=== PATIENT | male | born 1960 | race Caucasian/White ===

== ENCOUNTER 2018-05-21 08:33 | Outpatient (CLI) | payer OTHER, SELFPAY ==
[2018-05-21 12:13] LABS: ALT 34 U/L (12-78); AST 24 U/L (15-37); Albumin 3.8 g/dL (3.4-5.0); Alkaline Phosphatase 94 U/L (46-116); Anion Gap 9.8 mmol/L (3-11); BUN 33 mg/dL (7-18); Bilirubin, Total 0.7 mg/dL (0.2-1.0); CO2 26.2 mmol/L (21.0-32.0); CREATININE 1.02 mg/dL (0.70-1.30); Calcium 9.1 mg/dL (8.5-10.1); Chloride 104 mmol/L (98-107); Glucose 102 mg/dL (70-100); Potassium 4.5 mmol/L (3.5-5.1); Sodium 140 mmol/L (136-145); Total Protein 7.1 g/dL (6.4-8.2)
== END 2018-05-21 08:53 ==
PROVIDERS: PCP Family Medicine; Visit Provider Family Medicine
DX: I10 Essential (primary) hypertension (principal)
CPT/HCPCS: 36415; 80053

== ENCOUNTER 2019-12-18 04:05 | Outpatient (CLI) | payer OTHER, SELFPAY ==
[2019-12-18 09:57] LABS: ALT 41 U/L (16-63); AST 23 U/L (15-37); Albumin 4.1 g/dL (3.4-5.0); Alkaline Phosphatase 87 U/L (46-116); Anion Gap 7.3 mmol/L (3-11); BUN 35 mg/dL (7-18); Bilirubin, Total 0.8 mg/dL (0.2-1.0); CO2 28.7 mmol/L (21.0-32.0); CREATININE 1.11 mg/dL (0.70-1.30); Calcium 9.4 mg/dL (8.5-10.1); Calculated LDL 118 mg/dL (<100); Chloride 101 mmol/L (98-107); Cholesterol 212 mg/dL (<200); Glucose 116 mg/dL (74-106); HDL Cholesterol 42 mg/dL (40-60); Magnesium 1.9 mg/dL (1.8-2.4); Potassium 4.8 mmol/L (3.5-5.1); Sodium 137 mmol/L (136-145); Total Protein 7.4 g/dL (6.4-8.2); Triglyceride 264 mg/dL (<150)
== END 2019-12-18 04:25 ==
PROVIDERS: PCP Family Medicine; Visit Provider Family Medicine
DX: I10 Essential (primary) hypertension (principal); E83.42 Hypomagnesemia
CPT/HCPCS: 36415; 80053; 80061; 83735

== ENCOUNTER 2020-07-18 18:27 | Outpatient (CLI) | payer OTHER, SELFPAY ==
--- NOTE | 2020-07-18 13:30 | DI.RAD_ITS ---
EXAM: XR HIP LT COMPLETE AP PELVIS CLINICAL HISTORY: increasing left hip pain/constant/no trauma M16.9 OSTEOARTHRITIS OF HIP. TECHNIQUE: 2D digital imaging was performed. FINDINGS: There no hip fractures. However, there has been significant further deterioration of the degenerativ e changes in the left hip. There is now complete elimination of the joint space superiorly and degen erative subarticular cysts in both femoral head and superior acetabulum. Also osteophytes at the fem oral head level. On the lateral view there is a bony excrescence on the anterior femoral neck indica ting that there is probably element of cam-type SANDER here. The opposite-right hip appears unchanged and unremarkable. IMPRESSION: Advanced osteoarthritic degenerative changes in the left hip, significantly progressed from January 2017 . DATA REPOSITORY: RADIATION DOSE DELIVERED:
== END 2020-07-18 18:47 ==
PROVIDERS: PCP Family Medicine; Visit Provider Family Medicine
DX: M16.12 Unilateral primary osteoarthritis, left hip (principal)
CPT/HCPCS: 73502

== ENCOUNTER 2020-10-27 14:54 | Outpatient (CLI) | payer OTHER, SELFPAY ==
--- NOTE | 2020-10-27 14:45 | RT.EKG_ITS ---
APPROVED REPORT Exam: Resting ECG Patient Location: O HR:67 bpm ECG Measurements Heart Rate 67 AXIS WV 146 P 8 QRSd 79 QRS -11 QT 401 T 13 QTc 426 Conclusion Sinus rhythm...normal P axis, V-rate 60- 99
== END 2020-10-27 14:55 | disposition home or self-care (01) ==
LOC: DI.CM 14:56
PROVIDERS: PCP Family Medicine; Visit Provider Nurse Practitioner Family
DX: Z01.810 Encounter for preprocedural cardiovascular examination (principal)
CPT/HCPCS: 93010

== ENCOUNTER 2020-11-03 02:17 | Outpatient (CLI) | payer OTHER, SELFPAY ==
[2020-11-03 08:51] LABS: Calculated LDL 122 mg/dL (<100); Cholesterol 180 mg/dL (<200); HDL Cholesterol 39 mg/dL (40-60); Triglyceride 95 mg/dL (<150)
[2020-11-03 09:05] LABS: Hemoglobin A1C 5.8 % (<5.7)
== END 2020-11-03 02:18 | disposition home or self-care (01) ==
LOC: LBO 02:17
PROVIDERS: PCP Family Medicine; Visit Provider Nurse Practitioner Family
DX: Z13.1 Encounter for screening for diabetes mellitus (principal); Z13.220 Encounter for screening for lipoid disorders
CPT/HCPCS: 36415; 80061; 83036

== ENCOUNTER 2022-01-03 01:52 | Outpatient (CLI) | payer OTHER, SELFPAY ==
[2022-01-03 13:21] LABS: CREATININE 1.2 mg/dL (0.70-1.30)
== END 2022-01-03 01:53 | disposition home or self-care (01) ==
LOC: LBO 01:52
PROVIDERS: PCP Nurse Practitioner Family; Visit Provider Nurse Practitioner Family
DX: I10 Essential (primary) hypertension (principal)
CPT/HCPCS: 36415; 82565

== ENCOUNTER 2022-05-08 03:57 | Outpatient (CLI) | payer OTHER, SELFPAY ==
[2022-05-08 10:36] LABS: Anion Gap 7.7 mmol/L (3-11); BUN 32 mg/dL (7-18); CO2 28.3 mmol/L (21.0-32.0); CREATININE 1.2 mg/dL (0.70-1.30); Calcium 9.5 mg/dL (8.5-10.1); Chloride 102 mmol/L (98-107); Glucose 114 mg/dL (74-106); Potassium 4.5 mmol/L (3.5-5.1); Sodium 138 mmol/L (136-145)
== END 2022-05-08 03:58 | disposition home or self-care (01) ==
PROVIDERS: PCP Nurse Practitioner Family; Visit Provider Nurse Practitioner Family
DX: I10 Essential (primary) hypertension (principal)
CPT/HCPCS: 36415; 80048

== ENCOUNTER 2023-03-13 04:01 | Outpatient (CLI) | payer OTHER, SELFPAY ==
[2023-03-13 08:42] LABS: ALT 43 U/L (16-63); AST 26 U/L (15-37); Albumin 3.7 g/dL (3.4-5.0); Alkaline Phosphatase 83 U/L (46-116); Anion Gap 7.7 mmol/L (3-11); BUN 29 mg/dL (7-18); Bilirubin, Total 0.8 mg/dL (0.2-1.0); CO2 27.3 mmol/L (21.0-32.0); CREATININE 1.2 mg/dL (0.70-1.30); Calcium 8.6 mg/dL (8.5-10.1); Calculated LDL 43 mg/dL (<100); Chloride 103 mmol/L (98-107); Cholesterol 113 mg/dL (<200); Estimated GFR 68.38 (mL/min/1.73m2); Glucose 112 mg/dL (74-106); HDL Cholesterol 53 mg/dL (40-60); Potassium 4.4 mmol/L (3.5-5.1); Sodium 138 mmol/L (136-145); Triglyceride 88 mg/dL (<150)
== END 2023-03-13 04:02 | disposition home or self-care (01) ==
LOC: LBO 04:01
PROVIDERS: PCP Nurse Practitioner Family; Visit Provider Nurse Practitioner Family
DX: E78.5 Hyperlipidemia, unspecified (principal)
CPT/HCPCS: 36415; 80053; 80061

== ENCOUNTER 2024-03-26 13:16 | Outpatient (CLI) | payer OTHER, SELFPAY ==
--- NOTE | 2024-03-26 13:00 | DI.RAD_ITS ---
Exam(s) XR HIP LT COMPLETE AP PELVIS EXAM: XR HIP LT COMPLETE AP PELVIS CLINICAL HISTORY: evaluate pathology, lt hip pain, m25.552. TECHNIQUE: 2D digital imaging was performed. Three views. COMPARISON: CR XR HIP LT COMPLETE AP PELVIS from 07/18/2020 FINDINGS: BONES: No acute fracture is present. No bony destructive lesion is seen. JOINTS: No dislocation present. A left hip prosthesis has been placed since the previous exam. The a lignment appears satisfactory. No abnormal surrounding lucencies. There are moderate degenerative c hanges of the right hip, with mild worsening compared with the prior exam. The SI joints and pubic s ymphysis are unremarkable. SOFT TISSUE: Vasectomy clips. IMPRESSION: Unremarkable left hip prosthesis. Moderate degenerative changes of the right hip. DATA REPOSITORY: RADIATION DOSE DELIVERED:
--- NOTE | 2024-03-26 13:00 | DI.RAD_ITS ---
Exam(s) XR LUMBAR SPINE COMPLETE EXAM: XR LUMBAR SPINE COMPLETE CLINICAL HISTORY: evaluate pathology,pain. TECHNIQUE: 2D digital imaging was performed. Five views. COMPARISON: No exams were available for comparison FINDINGS: BONES: No fracture or destructive lesion. Vertebral body heights are maintained. facet hypertroph y identified at L4-5 and L5-S1.. DISKS: Moderate narrowing of the L4-5 disc space. Moderate to severe narrowing of the L5-S1 disc spa ce. Endplate osteophytes noted at at this level. The more superior intervertebral disc spaces are maintained. ALIGNMENT: Lumbar spinal alignment is within normal limits. SOFT TISSUE: The aorta is calcified and normal in diameter. IMPRESSION: Degenerative disc changes and facet degenerative changes at L4-5 and L5-S1. DATA REPOSITORY: RADIATION DOSE DELIVERED:
== END 2024-03-26 13:36 ==
LOC: DI 15:26
PROVIDERS: PCP Nurse Practitioner Family; Visit Provider Nurse Practitioner Family
DX: M25.552 Pain in left hip (principal); M47.897 Other spondylosis, lumbosacral region
CPT/HCPCS: 72110; 73502

== ENCOUNTER 2024-05-01 06:09 | Day surgery (SDC) | payer OTHER, SELFPAY ==
--- NOTE | 2024-04-30 21:08 | COLE_ITS ---
Date of service: 05/01/24 Time of Service: 08:06 Colonoscopy Report Date of procedure: 05/01/24 Pre-op diagnosis general: crc screen/hx of colitis Post-op diagnosis procedure note: other (Severe diverticular disease) Surgeon: Alecia Michel Anesthesia Type: General:No Airway Estimated blood loss (mL): 2 Pathology: other Complications: None Disposition: same day Prep: Miralax/Dulcolax Retraction Time: 9 Procedure Description: After informed consent was obtained, explaining risks of the procedure, including but not limits to: bleeding, infections, complications of anesthesia, perforations (which may require antibiotics and /or surgery and stay in the hospital), and abdominal pain/cramping. The patient was taken to the procedure room and placed in a left decubitous position. Monitors were applied and a time out was done. The patients name, date of , procedure, allergies to medications and metal in their body was reviewed. The patient was then sedated. Once sedated and comfortable a rectal exam was done. External exam was normal. Internal exam revealed a normal sphincter tone and no palpable masses. The prostate no palpable masses The previously lubricated Olympus scope was then introduced (see RN notes for scope number) and retrofelexed. No internal hemorrhoids were identified. The scope was then advanced to the cecum without difficulty. The TI and appendiceal orifice were identified. The scope was then slowly retracted over 9 minutes back into the rectum. Polyps: None. Diverticula: pt had a large amount of large mouthed diverticula in the sigmoid colon. There were no signs of activ e bleeding or infection. The mucosa is pink and healthy w/ a normal vascular pattern. The scope was removed, and the patient was woken up and taken back to Same day surgery in stable condition. The patient tolerated the procedure well and there were no immediate complications. Follow up: The patient does not require any further routine screening colonoscopies, unless they develop changes in bowel habits or other new gastrointestinal complaints. [place] Bowel Prep [place] Bowel Prep Right Colon: 3 Left Colon: 3 Transverse Colon: 3 Total Score: 9
--- NOTE | 2024-04-30 21:09 | PDOC.DSDIS_ITS ---
Date of service: 05/01/24 Time of Service: 08:09 Discharge Plan Disposition Patient Disposition: Home Condition: Good Discharge Details Reason For Visit: colon scope Attending Provider: Alecai Michel Primary Care Provider: Tobi Cortés Home Meds and New Rx's Prescriptions: Continued Flonase Sensimist 27.5 mcg/actuation spray,suspension 1 spray ALLEN DAILY PRN amlodipine 5 mg tablet 5 mg PO DAILY Qty: 90 4RF rosuvastatin 10 mg tablet 10 mg PO DAILY Qty: 90 4RF meloxicam 15 mg tablet 15 mg PO DAILY Qty: 90 3RF hydrochlorothiazide 12.5 mg tablet 12.5 mg PO DAILY Qty: 90 3RF Rx Instructions: take one tablet in am lisinopril 40 mg tablet 40 mg PO DAILY Qty: 90 4RF Rx Instructions: increased dose/take one tablet daily omeprazole 20 mg capsule,delayed release(DR/EC) 20 mg PO DAILY Qty: 90 3RF Discontinued bisacodyl 5 mg tablet,delayed release (DR/EC) 5 mg PO ONCE Qty: 4 0RF Rx Instructions: Per Colonoscopy bowel prep instructions polyethylene glycol 3350 17 gram/dose powder 238 g PO ONCE Qty: 238 0RF Rx Instructions: For Colonoscopy bowel prep, as directed by office Discharge Instructions Additional Instructions: DSU Colonoscopy Post- Op Instructions Instructions for Everyone who is given Anesthesia: For your safety, please do the following for the next twenty-four (24) hours: *Do Not operate a motor vehicle (car, truck, motorcycle, etc.) *Do Not drink alcoholic beverages or use any recreational drugs for the first 24 hours or while taking pain medications. The medications in your body may have a reaction that can be dangerous. *Do Not make any important decisions or sign any important papers. Findings: Severe diverticular disease. Make sure you are moving your bowels on regular basis and not straining to go to the bathroom. See handout Follow up: Due to the severity of the diverticular disease, no further screening colonoscopies are advised 1. No lifting over 20 pounds or strenuous activity for the first 24 hours after your procedure. After 24 hours there are no restrictions on your activity but you may feel fatigued for a few days. 2. After you arrive home you may have a light meal and return to your normal diet as you can tolerate it without feeling sick to your stomach. 3. You may have a bloated, gaseous feeling in your belly (abdomen) after a colonoscopy. Passing gas and belching will help. Walking or lying down on your left side with your knees flexed may relieve the discomfort. Call the office at [phone] (Office) or [phone] (Hospital) right away if you notice any of the following: a.Vomiting of blood or ?coffee ground stools?. b.Rectal bleeding 1Tbsp, blood clots or continuous bleeding. c.Severe belly (abdominal) pain. d.A hard distended belly (abdomen) and an inability to pass gas. 4. Please don?t expect to have a normal BM (bowel movement) for 2-3 days after your procedure. 5. If there are questions regarding the findings of your procedure, please contact your doctor 6. If you are unable to contact your doctor with a problem, contact the hospital at [phone]. 7. Continue all your regular medications unless directed otherwise. I understand the above instructions and have no questions. Signature of Patient or Adult Escort Name of Responsible Adult Escort Signature of Nurse Date/Time Stand Alone Forms: Anesthesia Discharge Inst., Press Ganey (DSU) Activity:: see above Diet:: see above Discharge Orders Discharge Orders: Discharge Order (Routine); Ordered 05/01/24 Ordered By: Alecia Michel DS: Diagnosis Discharge Diagnosis (1) Essential hypertension: Status: Acute (2) Hyperlipidemia: Status: Acute (3) Gastroesophageal reflux disease with esophagitis: Status: Acute (4) History of tobacco use: Status: Acute (5) Diverticula of colon: Status: Acute Asessment and Plan: The patient is seen and examined after their colonoscopy.? The patient has been able to pass gas.? They are not having abdominal pain.? They have been able to tolerate liquids and a snack.? They do not have any nausea or vomiting.? They are not having any chest pain or shortness of breath.??? They are not having any rectal bleeding. Their vital signs have been stable-see nursing notes. We discussed findings during their colonoscopy, and any biopsies that were done/polyps that were removed. The patient will be sent a letter with any biopsy results, and when to repeat the colonoscopy.-see discharge instructions. Patient was given explicit instructions to follow-up regarding colonoscopy-refer to discharge instructions.? We reviewed resumption of medications. Patient verbalized understanding and discharged in stable and satisfactory condition- See nursing notes. -Severe disease
[2024-05-01 06:25] VITALS: BP 126/94; PULSE 90; RESP 16; TEMP 36.5; O2SAT 95
[2024-05-01 06:43] VITALS: BMI 26.9
--- NOTE | 2024-05-01 06:43 | ANES.PREOP_ITS ---
General Info Date of Service Date Performed: 05/01/24 Height: 5 ft 11 in Weight: 87.8 kg Body Mass Index (BMI): 26.9 Surgical Procedure: Operation Date: 05/01/24 07:35 Proposed Procedure Side Surgeon lawrence Michel, Meds Allergies and Home Medications Allergies Allergy/AdvReac Type Severity Reaction Status Date / Time cephalexin Allergy Intermediate Skin Rash Verified 05/01/24 06:20 hydrocodone Allergy Unknown rash Verified 05/01/24 06:20 Home Medication ?Medication ?Instructions ?Recorded fluticasone furoate 27.5 1 spray intranasal DAILY PRN 04/07/19 mcg/actuation nasal spray,suspension (Flonase Sensimist) hydrochlorothiazide 12.5 mg tablet 12.5 mg PO DAILY #90 tabs 08/09/23 lisinopril 40 mg tablet 40 mg PO DAILY #90 tabs 08/09/23 meloxicam 15 mg tablet 15 mg PO DAILY #90 tabs 08/09/23 omeprazole 20 mg capsule,delayed 20 mg PO DAILY #90 tab-caps 08/09/23 release amlodipine 5 mg tablet 5 mg PO DAILY #90 tabs 04/15/24 rosuvastatin 10 mg tablet 10 mg PO DAILY #90 tabs 04/15/24 Current Visit Medications: Current Medications Generic Name Dose Route Start Last Admin Trade Name Freq PRN Reason Stop Dose Admin Hyoscyamine Sulfate 0.125 mg 05/01/24 10:19 Hyoscyamine 0.125 Mg Sl/Oral/Chew SL 05/31/24 10:18 DIRECTED PRN Ringer's Solution 500 mls @ 80 mls/hr 05/01/24 06:00 IV 05/01/24 23:59 INFUSION JESSICA IV Miscellaneous Supplies 1 each 05/01/24 06:00 Iv Access IV 05/01/24 23:59 DIRECTED JESSICA Ondansetron HCl 4 mg 05/01/24 10:19 Ondansetron 4 Mg/2 Ml Vial IVP 05/31/24 10:18 Q4H PRN PRN Nausea / Vomiting Sodium Chloride 0 ml 05/01/24 06:00 Normal Saline Flush 10 Ml Syr IV 05/01/24 23:59 PRN PRN Sodium Chloride 0 ml 05/01/24 06:00 Normal Saline 10 Ml Vial IJ 05/01/24 23:59 DIRECTED PRN Sterile Water 0 ml 05/01/24 06:00 Water,Injection,Sterile 10 Ml Vial IJ 05/01/24 23:59 DIRECTED PRN PFSH Active Problems Active Problems: Problem Status Onset Code Diverticula of colon Acute K57.30 Essential hypertension Acute 07/20/16 I10 Gastroesophageal reflux disease with esophagitis Acute K21.0 History of tobacco use Acute Z87.891 Sensorineural hearing loss, bilateral Acute H90.3 Tinnitus of both ears Acute H93.13 Neck pain on left side Acute M54.2 Hyperlipidemia Acute E78.5 Medical History Medical History Fixation hardware in lower extremity Osteoarthritis of hip left hip replaced in 2020 History of tobacco use QUIT 07/19 Surgical History Surgical History History of orthopedic surgery right ankle metal plate History of spinal surgery lumbar Status post vasectomy History of back surgery Vasectomy Tobacco Smoking/Tobacco Use Status: Former Tobacco Use Passive smoking exposure: No Second hand exposure: Yes Alcohol Alcohol Intake: current Alcohol intake frequency: a few times a week Alcohol type: beer and hard liquor Substance Use Substance use: Occasionally Substance use type: marijuana Vital Signs and Lab Results Vital Signs Most Recent Vital Signs in EMR: Most Recent Vital Signs Temp Pulse Resp BP Pulse Ox 36.5 C 90 16 126/94 H 95 05/01/24 06:25 05/01/24 06:25 05/01/24 06:25 05/01/24 06:25 05/01/24 06:25 Lab Results 05/01/24 06:30 Blood Type / Crossmatch: 2 No Data to Display Complete Blood Count: 2 No Data to Display Complete Metabolic Panel: 2 No Data to Display Liver Function Panel: 2 No Data to Display Coagulation Panel: 2 No Data to Display Cardiac Panel: 2 No Data to Display Arterial Blood Gas: 2 No Data to Display Venous Blood Gas: 2 No Data to Display Pancreas Panel: 2 No Data to Display Thyroid Panel: 2 No Data to Display Infectious Disease: 2 No Data to Display Blood Cultures: 2 No Data to Display Toxicology Panel: 2 No Data to Display Anesthesia Assessment and Plan Anesthesia History Personal History: No History of Anesthesia Complications Family History: No Family History of Anesthesia Complications Exercise Tolerance Exercise Tolerance: Metabolic Equivalents>4 Pertinent Negatives Pertinent Negatives: No Symptoms of GERD Cardiac & Pulmonary Exam Cardiac Exam: Normal S1/S2 Heart Sounds Pulmonary Exam: Clear Bilateral Breath Sounds Implantable Cardiac Device Does patient have a Pacemaker or an ICD?: No Airway Exam Known Difficult Airway: No Mallampati Class: 2 Mouth Opening: Normal (> 3cm) Thyromental Distance: Greater than 3 cm Neck Range of Motion: Full ROM Neck Circumference: Normal Teeth Condition: Normal Dentition ASA Classification ASA Score: ASA 2 Emergency Case?: No NPO Status NPO Status: NPO Clears >2 hours, Solids >8 hours Anesthesia Plan Resuscitation Status: Full Code Anesthesia Technique: General Anesthesia Airway Planned: Natural Airway Monitors Used: Standard Monitors
[2024-05-01] MEDS: Lactated Ringers 500 ML 80 ML IV (06:50)
[2024-05-01 07:34] LABS: Abs Immature Grans 0.07 10^3/uL (0.0-0.06); Absolute Basophil Count 0.05 10^3/uL (0.0-0.2); Absolute Lymphocyte Count 1.67 10^3/uL (1.2-3.4); Absolute Monocyte Count 0.71 10^3/uL (0.1-0.8); Absolute Neutrophil Count 5.75 10^3/uL (1.2-6.7); Basophils % 0.6 %; Eosinophils % 1.2 %; HCT 40.1 % (40.0-50.0); HGB 14.3 g/dL (13.5-17.5); Immature Grans % 0.8 %; MCHC 35.7 % (32.0-36.0); MCV 96 fL (80-95); MPV 9.5 fL (8.0-11.0); Monocytes % 8.5 %; Neutrophils % 68.9 %; Platelet Count 275 10^3/uL (130-400); RDW 11.9 % (11.8-14.1); RDW-SD 40.8 fL; WBC 8.35 10^3/uL (4.4-10.8)
[2024-05-01 07:48] LABS: C-Reactive Protein < 0.50 mg/dL (<or=0.5)
--- NOTE | 2024-05-01 07:50 | BOWEL_PTH ---
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
[2024-05-01 08:04] VITALS: BP 103/77; PULSE 74; RESP 18; TEMP 35.9; O2SAT 92
--- NOTE | 2024-05-01 08:12 | W.ANESPOSTOP ---
Postoperative Evaluation Date, Time and Location Date Performed: 05/01/24 Time Performed: 08:12 Patient Location: Day Surgery Unit Vital Signs Most Recent Imported Vital Signs: Most Recent Vital Signs Temp Pulse Resp BP Pulse Ox 36.5 C 90 16 126/94 H 95 05/01/24 06:25 05/01/24 06:25 05/01/24 06:25 05/01/24 06:25 05/01/24 06:25 Pain Score Most Recent Pain Score: Most Recent Pain Score Pain Level 1 05/01/24 06:25 Assessment Mental Status: Awake (Alert & Oriented to Patient Baseline) Airway and Respiratory Function: Patent airway with normal (patient baseline) respiratory exam Cardiovascular Function: Hemodynamically Stable Hydration Status: Adequately Hydrated Nausea & Vomiting: No Nausea or Vomiting Pain: Pt. Denies Any Pain Peripheral Nerve Block: Patient did not receive a nerve block
[2024-05-01 08:30] VITALS: BP 124/78; PULSE 81; RESP 16; TEMP 36.2; O2SAT 98
== END 2024-05-01 08:41 | disposition home or self-care (01) ==
LOC: SUR 06:09
PROVIDERS: PCP Nurse Practitioner Family; Visit Provider Surgery
PROC: 0DJD8ZZ Inspection of Lower Intestinal Tract, Via Natural or Artificial Opening Endoscopic (ICD-10-PCS; CPT 45378; principal; 2024-05-01 07:30)
DX: K57.30 Diverticulosis of large intestine without perforation or abscess without bleeding; Z12.11 Encounter for screening for malignant neoplasm of colon; I10 Essential (primary) hypertension; Z87.891 Personal history of nicotine dependence
CPT/HCPCS: 45380; 36415; 88305; 85025; 86140; J2704

== ENCOUNTER 2024-07-06 09:04 | Outpatient (CLI) | payer OTHER, SELFPAY ==
--- NOTE | 2024-07-06 09:00 | RT.EKG_ITS ---
APPROVED REPORT Exam: Resting ECG Reason for Exam: pre op screening Hypertension Patient Location: O HR:80 bpm ECG Measurements Heart Rate 80 AXIS MO 134 P 6 QRSd 95 QRS -10 QT 373 T 13 QTc 431 Conclusion Sinus rhythm...normal P axis, V-rate Normal Electrocardiogram Baseline wander in lead(s) V4
== END 2024-07-06 09:05 | disposition home or self-care (01) ==
LOC: DI.CM 09:05
PROVIDERS: PCP Nurse Practitioner Family; Visit Provider Nurse Practitioner Family
DX: Z01.818 Encounter for other preprocedural examination (principal)
CPT/HCPCS: 93010

== ENCOUNTER 2024-07-10 01:20 | Outpatient (CLI) | payer OTHER, SELFPAY ==
[2024-07-10 11:30] LABS: HGB 13.9 g/dL (13.5-17.5); MCH 33.8 pg (27.0-33.0); MCHC 34.8 % (32.0-36.0); MCV 97 fL (80-95); MPV 9.4 fL (8.0-11.0); Platelet Count 290 10^3/uL (130-400); RBC 4.11 10^6/uL (4.36-5.78); RDW 11.7 % (11.8-14.1); RDW-SD 42.2 fL; WBC 10.96 10^3/uL (4.4-10.8)
[2024-07-10 11:44] LABS: PTT Activated 26.1 sec (23.6-32.8)
[2024-07-10 12:06] LABS: BUN 26 mg/dL (7-18); CREATININE 1.4 mg/dL (0.70-1.30); Chloride 103 mmol/L (98-107); Estimated GFR 56.13 (mL/min/1.73m2); Glucose 106 mg/dL (74-106); Potassium 4.1 mmol/L (3.5-5.1); Sodium 141 mmol/L (136-145)
== END 2024-07-10 01:21 | disposition home or self-care (01) ==
LOC: LBO 01:20
PROVIDERS: PCP Nurse Practitioner Family; Visit Provider Nurse Practitioner Family
DX: I10 Essential (primary) hypertension (principal)
CPT/HCPCS: 36415; 80048; 85027; 85730